=== PATIENT | female | born 1945 | race Caucasian/White ===

== ENCOUNTER 2016-03-23 01:26 | Inpatient (IN) | payer OTHER, MEDICARE ==
[~2016-03-23] VITALS: Ht 166.4 cm; Wt 86.2 kg
[2016-03-23] MEDS ORDERED: BYSTOLIC10 M1 PO (11:40)
[2016-03-23] MEDS ORDERED: NIFEDIPINE ER30 M2 PO (11:40)
[2016-03-23] MEDS ORDERED: SYNTHROID100 MCG PO (11:41)
[2016-03-23] MEDS ORDERED: CRESTOR10 M1 PO (11:41)
[2016-03-23] MEDS ORDERED: ZOLPIDEM TARTRAT5 M1 PO (11:42)
[2016-03-23] MEDS ORDERED: ULTRAM50 M1 PO (11:43)
[2016-03-23] MEDS ORDERED: MEDICAL MARIJUANA (11:43)
[2016-03-23] MEDS ORDERED: DILAUDID2 M1 PO (13:54)
[2016-03-23] MEDS ORDERED: ASPIRIN EC325 M2 PO (13:54)
[2016-03-23] MEDS ORDERED: COLACE100 M1 PO (13:54)
[2016-03-23] MEDS ORDERED: MS CONTIN15 M2 PO (13:54)
[2016-03-23] MEDS ORDERED: MIRALAX17 G1 PO (13:54)
--- NOTE | 2016-03-23 13:56 | Patient Discharge Instructions ---
Discharge Instructions General Discharge Information You were seen/treated for: Right hip pain You had these procedures: Right total hip replacement Watch for these problems: Increasing pain, redness, warmth, swelling. Discharge of any type from incision. Inability to bear weight on right leg. Fever greater than 101.5. Do not soak the wound: Yes No bath, but you may shower: Yes Other wound care: Daily dry dressing changes starting postoperative day 2 Special Instructions: Incision: Dry dressing. May shower. No baths. No ointments of any kind. Ice as needed. Bowel regimen: Colace and or MiraLAX Weight-bearing as tolerated Follow-up with Dr. Angelo in 6 weeks. Call office for fevers greater than 101.5, excessive drainage or inability to bear weight on operative extremity. Visiting nurse will change dressing. Diet Continue normal diet: Yes Recommended Diet: Gluten Free Additional DIET Information: Advance as tolerated Activity Full Activity/No Limits: No Activity Self Limited: Yes Pounds, do NOT lift more than: 10 Other activity limits: A bear as tolerated on right lower extremity Acute Coronary Syndrome Inclusion Criteria At DC or during hospital stay patient has or had the following: ACS DIAGNOSIS No Discharge Core Measures Meds if any: Prescribed or Continued at Discharge Meds if any: NOT Prescribed or Continued at Discharge Congestive Heart Failure Inclusion Criteria At DC or during hospital stay patient has or had the following: CHF DIAGNOSIS No Discharge Core Measures Meds if any: Prescribed or Continued at Discharge Meds if any: NOT Prescribed or Continued at Discharge Cerebrovascular accident Inclusion Criteria At DC or during hospital stay patient has or had the following: CVA/TIA Diagnosis No Discharge Core Measures Meds if any: Prescribed or Continued at Discharge Meds if any: NOT Prescribed or Continued at Discharge Venous thromboembolism Inclusion Criteria VTE Diagnosis No VTE Type NONE VTE Confirmed by (Test) NONE Discharge Core Measures - Per Current guidelines, there needs to be overlap - treatment for the first 5 days of Warfarin therapy. - If discharged on Warfarin prior to 5 days of - overlap therapy, the patient will need to be - assessed for post discharge needs including - *Post discharge parental anticoagulation - *Warfarin and/or parental anticoagulation education - *Follow up date to check INR post discharge At least 5 days overlap therapy as Inpatient No Meds if any: Prescribed or Continued at Discharge Note: Overlap Therapy is Warfarin and Anticoagulant Meds if any: NOT Prescribed or Continued at Discharge
--- NOTE | 2016-03-23 13:57 | Admission Core Measures ---
Admission Meds I reviewed the following Meds: Current Medications Sig/Trina Start time Last Medication Dose Stop Time Status Admin Acetaminophen 650 MG ONCE ONE 03/23 1145 CAN (Tylenol) 03/23 1146 Atorvastatin Calcium 40 MG 1700 03/23 1700 AC (Lipitor) Cefazolin Sodium 200 MG ONCE ONE 03/23 1200 CAN (Kefzol-Ancef Inj) 03/23 1201 Levothyroxine Sodium 0.1 MG DAILY 03/24 1000 AC (Synthroid) Nebivolol 10 MG DAILY 03/24 1000 AC (Bystolic) Nifedipine 30 MG DAILY 03/24 1000 AC (Procardia XL) Zolpidem Tartrate 5 MG AT BEDTIME NEED.. 03/23 2200 AC (Ambien) Acute Coronary Syndrome Inclusion Criteria ACS Diagnosis No Inpatient Core Measures LDL Reminder: If No, please order W/I first 24hr of stay Congestive Heart Failure Inclusion Criteria CHF Diagnosis No Cerebrovascular accident Inclusion Criteria CVA/TIA Diagnosis No Inpatient Core Measures Bedside Swallow Eval Reminder: If BSE failed, place ST order Antithrombotic Reminder: Order Antithrombotic Medication by end of day 2 Antithrombotic Reminder: Document Reason Antithrombotic Not ordered by end of day 2 AFIB/Flutter Reminder: If Present, add to problem list AFIB/Flutter Reminder: Order Anticoag Medication for pts with AFIB/Flutter Atherosclerosis Reminder: If Present, add to problem list LDL Reminder: If No, please order W/I first 24hr of stay PT Order Reminder: If No, please order Venous thromboembolism Inpatient Core Measures VTE Risk Factors: Age > 40, Surgery VTE Prophylaxis [facility] prophylaxis d/t No contraindications No VTE Pharm Prophylaxis d/t No contraindications Inclusion Criteria - Per Current guidelines, there needs to be overlap - treatment for the first 5 days of Warfarin therapy. - Parenteral Anticoagulation (IV or SC) needs to be - given along with Warfarin therapy. VTE Diagnosis No VTE Type NONE VTE Confirmed by (Test) NONE Problem List As ranked by this Provider includes Assessment & Plan 1. Unilateral primary osteoarthritis, right hip HOME MEDS Home Med List Aspirin (Ecotrin*) 325 MG TABLET.DR 1 TAB PO BID ANTICOAGULATION Docusate Sodium (Colace) 100 MG CAPSULE 1 CAP PO BID CONSTIPATION Hydromorphone HCl (Dilaudid) 2 MG TABLET 1-2 TAB PO Q4-6H PRN PAIN Levothyroxine Sodium (Synthroid) 100 MCG TABLET 1 TAB PO DAILY THROID ( Reported) Morphine Sulfate (Ms Contin) 15 MG TABLET.ER 1 TAB PO BID PAIN Nebivolol HCl (Bystolic) 10 MG TABLET 1 TAB PO DAILY bp (Reported) Nifedipine (Nifedipine ER) 30 MG TAB.ER.24 1 TAB PO DAILY BP (Reported) Polyethylene Glycol 3350 (Miralax) 17 GRAM POWD.PACK 1 PAC PO DAILY CONSITPATION Rosuvastatin Calcium (Crestor) 10 MG TABLET 1 TAB PO DAILY CHOLESTEROL ( Reported) Tramadol HCl (Ultram) 50 MG TABLET 1 TAB PO TIDPRN PAIN (Reported) Zolpidem Tartrate 5 MG TABLET 1 TAB PO QPMP SLEEP (Reported)
--- NOTE | 2016-03-23 13:59 | Surgical Discharge Summary ---
Visit Information Visit Dates Admission Date: 03/23/16 Discharge Date: 03/24/2016 History of Present Illness Chief Complaint: Right hip pain Medical History Isolation History: Standard Surgical History Pertinent Surgical History: non-contributory Review of Systems: See H&P Hospital Course Course Attending Physician: VERO STANTON MD Primary Care Physician: UNKNOWN Hospital Course: Patient was admitted to the hospital on 03/23/2016 for an elective right total hip replacement. She tolerated the procedure well. She was transferred to a general surgical floor. Her vital signs were stable and within normal limits. Her diet was advanced and tolerated. Her pain was well controlled. She voided spontaneously. She was evaluated and treated by physical therapy. She was deemed appropriate for discharge. Allergies: Coded Allergies: Sulfa (Sulfonamide Antibiotics) (03/22/16) gluten (03/22/16) losartan (03/22/16) lisinopril (COUGH 03/22/16) Disposition Summary Disposition Principal Diagnosis: Right hip unilateral primary osteoarthritis Additional Diagnosis: None Discharge Disposition: home health services Discharge Instructions General Discharge Information Code Status: Full Code Patient's Diet: Gluten-free, advance as tolerated Patient's Activity: Weight-bear as tolerated on right leg Follow-Up Instructions/Appts: Incision: Dry dressing. May shower. No baths. No ointments of any kind. Ice as needed. Bowel regimen: Colace and or MiraLAX Weight-bearing as tolerated Follow-up with Dr. Stanton in 6 weeks. Call office for fevers greater than 101.5, excessive drainage or inability to bear weight on operative extremity. Visiting nurse will change dressing. Medications at Discharge Discharge Medications: Continue taking these medications: Nebivolol HCl (Bystolic) 10 MG TABLET 1 Tablet ORAL DAILY Nifedipine (Nifedipine ER) 30 MG TAB.ER.24 1 Tablet ORAL DAILY Rosuvastatin Calcium (Crestor) 10 MG TABLET 1 Tablet ORAL DAILY Levothyroxine Sodium (Synthroid) 100 MCG TABLET 1 Tablet ORAL DAILY Zolpidem Tartrate (Zolpidem Tartrate) 5 MG TABLET 1 Tablet ORAL Every night as needed Tramadol HCl (Ultram) 50 MG TABLET 1 Tablet ORAL THREE TIMES A DAY NEEDED [MEDICAL MARIJUANA] Start taking the following new medications: Hydromorphone HCl (Dilaudid) 2 MG TABLET 1-2 Tablet ORAL Q4-6H as needed for PAIN Qty = 36 No Refills Morphine Sulfate (Ms Contin) 15 MG TABLET.ER 1 Tablet ORAL TWICE DAILY Qty = 6 No Refills Aspirin (Ecotrin*) 325 MG TABLET.DR 1 Tablet ORAL TWICE DAILY Qty = 60 No Refills Docusate Sodium (Colace) 100 MG CAPSULE 1 Capsule ORAL TWICE DAILY Qty = 14 No Refills Instructions: DISCONTINUE USE IF YOU DEVELOP LOOSE STOOL OR DIARRHEA Polyethylene Glycol 3350 (Miralax) 17 GRAM POWD.PACK 1 Packet ORAL DAILY Qty = 7 No Refills Instructions: dissolve in water, DISCONTINUE USE IF YOU DEVELOP LOOSE STOOL OR DIARRHEA
--- NOTE | 2016-03-23 15:54 | RADIOLOGY REPORT ---
EXAMINATION: XR HIP, RIGHT CLINICAL INFORMATION: Status post right total hip replacement. COMPARISON: None TECHNIQUE: AP and crosstable lateral views of the right hip in the PACU. FINDINGS: The total hip replacement is in the normally expected position. No dislocation is seen. There are no complications encountered. IMPRESSION: Total hip replacement.
--- NOTE | 2016-03-23 15:58 | Operative Report ---
Operative/Inv Procedure Report Surgery Date: 03/23/16 Name of Procedure: Right total hip replacement Pre-Operative Diagnosis: Primary right hip DJD Post-Operative Diagnosis: Same Estimated Blood Loss: 300 Surgeon/Cross Cut Saw Operator: MAXIMINO LEVI,VERO Foster Anesthesia: block Operative/Procedure Note Note: Description of Procedure: The patient was taken to the operating room and positively identified. After induction of spinal anesthesia and administration of appropriate pre-operative antibiotics, the patient was positioned supine on the operating room table and all bony prominences were well padded. After performing a surgical timeout, the right lower extremity was prepped and draped in the usual sterile fashion. A direct anterior approach was made to the right hip. The incision was carried sharply through superficial soft tissues to the level of the fascia. Meticulous hemostasis was maintained with Bovie electocautery. The fascia over the tensor fascia raya muscle was opened sharply and the interval between the TFL and the sartorius was entered bluntly taking care to stay lateral to the lateral femoral cutaneous nerve. Retractors were placed around the femoral neck and the pericapsular fat was identified. The ascending branches of the lateral femoral circumflex vessels were identified and carefully coagulated. The pericapsular fat and anterior capsule were then resected. A napkin ring osteotomy was performed and the femoral head was removed without difficulty. Attention was then turned to the acetabulum. After appropriate placement of retractors, the acetabulum was exposed. Soft tissue was cleaned from the acetabular margin and notch. Overhanging osteophytes were removed and the teardrop was exposed. The acetabulum was then sequentially reamed to accept a 54 mm Torres Tritanium hemispherical solid back shell. This was impacted into place in the appropriate position and fitted with a 36 mm Trident X3 zero degree polyethylene insert. Attention was then turned to the femur. After performing the appropriate ligament releases, the proximal femur was exposed. It was then sequentially broached to accept a size 4 Lyons accolade 2 stem. A cerclage cable was placed prophylactically. This was trialed for leg length and stability. The trial component was removed and the final component was impacted into place. The trunnion was carefully cleaned and fit with a 36 mm, +2.5 Biolox delta ceramic femoral head. The hip was reduced and put through a full range of motion and found to be stable. The articular space was then irrigated with sterile saline. The periarticular soft tissues were infilitrated with Marcaine. The fascial layer was closed with interrupted #1 vicryl suture and the skin was re-approximated with interrupted 2 -0 vicryl. The skin was closed with a running 3-0 V-Lock suture. Steri-strips and a sterile dressing were applied. The patient was awakened and taken to the recovery room in satisfactory condition.
[2016-03-23 17:17] VITALS: BP 116/66
[2016-03-23 20:03] VITALS: BP 120/76
--- NOTE | 2016-03-23 21:21 | PN- Orthopedic ---
Subjective Subjective: poc s/p right giacomo no complaints deneis cp, sob, no n+v with diet Objective Vital Signs and I&Os Vital Signs Date Time Temp Pulse Resp B/P Pulse O2 O2 Flow FiO2 Ox Delivery Rate 03/23 2002 98.0 91 20 120/76 94 Room Air 03/23 1717 97.4 74 18 116/66 97 Nasal 2.0L Cannula Intake & Output 03/23 0800 03/23 0000 03/22 0000 Intake Total Output Total Balance Patient 190 lb Weight Physical Exam: cv: rrr lungs: clear abd: soft, +bs ext: drsg dry thigh soft distal cms intact Assessment/Plan Assessment/Plan ortho stable plan oob with pt in am asa for dvt prophylaxis home d/c planning Core Measures/Miscellaneous Venous Thromboembolism VTE Risk Factors: Age > 40, Obesity, Surgery VTE Contraindications: No Contraindications VTE Prophylaxis Ordered Inpt: Mech & Pharm VTE Diagnosis: No VTE Type: NONE VTE Confirmed by (Test): NONE Beta Celi Is Beta Celi a Home Med? Yes Antibiotics Is Patient on Antibiotics? Yes
[2016-03-23 21:56] VITALS: BP 134/82
[2016-03-24 00:43] VITALS: BP 130/72
[2016-03-24 04:02] VITALS: BP 140/86; BP 1408/86
--- NOTE | 2016-03-24 07:45 | PN- Orthopedic ---
Subjective Subjective: The patient was seen this morning postoperatively day 1. She reports some anterior thigh tightness which is uncomfortable but is otherwise comfortable. She has no other complaints at the current time and denies any chest pain or difficulty breathing. Objective Vital Signs and I&Os Vital Signs Date Time Temp Pulse Resp B/P Pulse O2 O2 Flow FiO2 Ox Delivery Rate 03/24 0402 97.8 69 20 140/86 93 03/24 0043 97.4 84 20 130/72 97 03/23 2156 97.9 90 20 134/82 95 Room Air 03/23 2002 98.0 91 20 120/76 94 Room Air 03/23 1717 97.4 74 18 116/66 97 Nasal 2.0L Cannula Intake & Output 03/24 0800 03/24 0000 03/23 1600 03/23 0803/23 0000 03/22 1600 Intake Total 840 1025 Output Total 800 1800 Balance 40 -775 Intake, IV 600 225 Intake, Oral 240 800 Output, Urine 800 1800 Patient 190 lb 190 lb Weight Physical Exam: Gen.: Alert and in no obvious distress Skin: Warm and dry Extremities: Bilateral lower extremities warm without calf tenderness or significant edema. Gross motor and sensory are intact. Right hip surgical dressing is clean, dry, and intact without signs of infection. There is some mild edema of the anterior thigh but compartments are soft. Assessment/Plan Assessment/Plan Assessment: 70-year-old female status post right total hip arthroplasty postoperative day #1. The patient is progressing as expected and her pain is under relatively adequate control. Plan: Out of bed with physical therapy patient is weightbearing as tolerated Hep-Lock IV fluids Continue current pain regiment Will order 1 dose of by mouth Valium to see if that helps with muscle spasm GI and DVT prophylaxis Follow-up morning laboratory studies Discharge home later today if cleared by physical therapy Core Measures/Miscellaneous Venous Thromboembolism VTE Risk Factors: Age > 40, Obesity, Surgery VTE Contraindications: No Contraindications VTE Prophylaxis Ordered Inpt: Mech [facility] Pharm VTE Diagnosis: No VTE Type: NONE VTE Confirmed by (Test): NONE Beta Celi Is Beta Celi a Home Med? Yes Antibiotics Is Patient on Antibiotics? No
[2016-03-24] MEDS ORDERED: VALIUM2 M1 PO (07:46)
[2016-03-24 08:01] VITALS: BP 142/90
[2016-03-24 09:13] LABS: ABSOLUTE BASOPHIL COUNT 0 /CUMM (0.0-0.2); ABSOLUTE EOSINOPHIL COUNT 0 /CUMM (0.0-0.7); ABSOLUTE GRANULOCYTE CT 13.1 /CUMM (1.4-6.5); ABSOLUTE LYMPH COUNT 1.3 /CUMM (1.2-3.4); ABSOLUTE MONOCYTE COUNT 1.5 /CUMM (0.10-0.60); BASOPHIL % 0 % (0.0-2.0); EOSINOPHIL % 0.2 % (0-5); HEMATOCRIT 39.4 % (37-47); MEAN CORPUSCULAR HGB 30.4 PG (27.0-31.0); MEAN CORPUSCULAR HGB CONC 33.8 G/DL (33.0-37.0); MEAN PLATELET VOLUME 8.1 FL (7.4-10.4); PLATELET COUNT 294 /CUMM (130-400); RBC DISTRIBUTION WIDTH 13.2 % (11.5-14.5); RED BLOOD CELL CT 4.37 /CUMM (4.20-5.40)
[2016-03-24 10:13] VITALS: BP 142/90
--- NOTE | 2016-03-24 12:15 | NUR ---
PATIENT COMPLAINED OF FEELING HOT/FEVERISH. FACE APPEARS FLUSHED, VITALS SIGNS OBTAINED AND WERE WNL. COOL CLOTH WAS APPLIED TO FACE/NECK. SURG YULIA LING CALLED AND MADE AWARE. PATIENT'S CONCERN WAS HEIGHTENED SINCE SHE HAD ENDOCARDITIS FROM A BACK SURGERY IN 2014. NO FURTHER ORDERS.
== END 2016-03-24 13:50 | disposition home health service (06) | DRG 470 ==
LOC: ENRESERVTM → ENRESERVDT → SDA 01:26 → 2NB 01:26 → ENPENDDIS 01:26 → SDA 07:00 → 2NB 17:10
PROVIDERS: Nurse Practitioner; ADMIT Orthopaedic Surgery
PROC: 0SR904A Replacement of Right Hip Joint with Ceramic on Polyethylene Synthetic Substitute, Uncemented, Open Approach (ICD-10-PCS; principal; 2016-03-23)
DX: M16.11 Unilateral primary osteoarthritis, right hip (principal); E11.42 Type 2 diabetes mellitus with diabetic polyneuropathy; I10 Essential (primary) hypertension; E78.5 Hyperlipidemia, unspecified; E03.9 Hypothyroidism, unspecified; E66.9 Obesity, unspecified; Z68.32 Body mass index [BMI] 32.0-32.9, adult
CPT/HCPCS: 2NSBP; 36415; 73502-RT; 82436; 88304; 97116-GO; 97161-GP; 97530-GO; J0690; J0735; J2405; J2550; J7042